=== PATIENT | female | born 1995 | race Caucasian/White ===

== ENCOUNTER 2017-09-17 21:28 | Emergency (ER) | payer OTHER ==
[~2017-09-17] VITALS: Ht 162.6 cm; Wt 55.3 kg
[~2017-09-17 21:28] MED LIST: NORETAB29 PO
[2017-09-17 21:35] VITALS: TEMP 36.9; Ht 162.6 cm; Wt 55.3 kg
[2017-09-17 22:34] LABS: BASO % 0.1 %; BASO ABS # 0.01 K/uL (0-0.2); EOS % 0.5 %; EOS ABS # 0.04 K/uL (0-0.5); HEMOGLOBIN 13.5 g/dL (12.0-16.0); IG# 0.01 K/uL (0.00-0.02); LYMPH % 26.6 %; LYMPH ABS # 1.94 K/uL (1.2-3.4); MEAN CELL VOLUME 85.5 fL (80-100); MEAN CORPUSCULAR HEMOGLOBIN 29.6 pg (25-34); MEAN CORPUSCULAR HGB CONC 34.6 g/dl (32-36); MEAN PLATELET VOLUME 10.1 fL (7.4-10.4); MONO % 8.4 %; MONO ABS # 0.61 K/uL (0.11-0.59); NEUT % 64.3 %; NEUT ABS # 4.68 K/uL (1.4-6.5); PLATELET COUNT 338 K/uL (130-400); RED CELL DISTRIBUTION WIDTH SD 40.1 fL (36.4-46.3); WHITE BLOOD COUNT 7.29 K/uL (4.8-10.8)
[2017-09-17 22:54] LABS: ALBUMIN 3.9 gm/dl (3.4-5.0); ALT/SGPT 23 U/L (12-78); BLOOD UREA NITROGEN 11 mg/dl (7-18); CALCIUM 9.2 mg/dl (8.5-10.1); CARBON DIOXIDE 26 mmol/L (21-32); CREATININE 0.73 mg/dl (0.60-1.20); GLUCOSE 87 mg/dl (70-99); POTASSIUM 3.6 mmol/L (3.5-5.1); SODIUM 137 mmol/L (136-145)
[2017-09-17 23:04] LABS: ALKALINE PHOSPHATASE 62 U/L (45-117); AST/SGOT 13 U/L (15-37); TOTAL PROTEIN 7.6 gm/dl (6.4-8.2)
[2017-09-17] MEDS ORDERED: SERT50TA PO (23:05)
[2017-09-17] MEDS ORDERED: ALPR-411 PO (23:06)
[2017-09-18 00:56] VITALS: BP 118/69; PULSE 67; O2SAT 100
--- NOTE | 2017-09-18 01:10 | EMERGENCY ROOM VISIT NOTE ---
History Report prepared by Monica: Mahesh Chavis Under the Supervision of: Dr. Elvin Colmenares D.O. First contact with patient: 21:43 Chief Complaint: MENTAL HEALTH EVALUATION Stated Complaint: SUICIDAL, PANIC ATTACKS History of Present Illness The patient is a 21 year old female who presents to the Emergency Room with complaints of resolved suicidal ideation occurring today. She states that she had a panic attack today. She states that she feels very stressed out about school, specifically being behind on all of her assignments. The patient states that she only felt suicidal during her panic attack today. She states that she no longer feels suicidal. She states that she had no real plan, and does not believe she would ever actual hurt herself. The patient has a history of anxiety (for which she is on Zoloft & Xanax). She denies any hallucinations. She denies headache, change in vision, fevers, chest pain, shortness of breath, nausea, vomiting, diarrhea, pain with urination, and melena. The patient has never attempted to harm herself in the past. Per friend, the patient called her today and was very upset. She states that she could hear the patient's pill bottle in the background on the phone, and went to see her immediately. The patient estimates that she has 3-4 panic attacks per day. Source of History: patient Onset: Today Quality: other (suicidal ideation) Timing: resolved Associated Symptoms: No fevers, No headache, No chest pain, No SOB, No nausea, No vomiting, No melena, No diarrhea, No urinary symptoms Review of Systems See HPI for pertinent positives & negatives. A total of 10 systems reviewed and were otherwise negative. Past Medical & Surgical Medical Problems: (1) Concussion (2) Migraine Surgical Problems: (1) [place] teeth removed Family History Patient reports no known family medical history. Social History Smoking Status: Never Smoker Housing Status: lives with roommate Occupation Status: [email or web address] student Current/Historical Medications Scheduled Alprazolam (Xanax), 2-3 TABS PO DIRECTED Norethindrone Acetate-Ethinyl (Lo Loestrin Fe), 1 TAB PO DAILY Sertraline (Zoloft), 50 MG PO DAILY Allergies Coded Allergies: Amoxicillin (Unverified Allergy, Unknown, HIVES, 09/17/17) Azithromycin (Unverified Allergy, Unknown, HIVES, 09/17/17) Physical Exam Vital Signs Date Time Temp Pulse Resp B/P (MAP) Pulse Ox O2 Delivery O2 Flow Rate FiO2 09/18/17 00:56 67 20 118/69 100 09/18/17 00:15 64 20 124/67 99 Room Air 09/17/17 21:35 36.9 71 20 121/75 100 Room Air Physical Exam GENERAL: Sitting up in bed, reserved, alert, well appearing, well nourished, no distress, non-toxic EYE EXAM: normal conjunctiva. OROPHARYNX: no exudate, no erythema, lips, buccal mucosa, and tongue normal and mucous membranes are moist NECK: supple, no nuchal rigidity, no adenopathy, non-tender LUNGS: Clear to auscultation. Normal chest wall mechanics HEART: no murmurs, S1 normal and S2 normal ABDOMEN: abdomen soft, non-tender, normo-active bowel sounds, no masses, no rebound or guarding. BACK: Back is symmetrical on inspection and there is no deformity, no midline tenderness, no CVA tenderness. SKIN: no rashes and no bruising UPPER EXTREMITIES: upper extremities are grossly normal. LOWER EXTREMITIES: No pitting edema. NEURO EXAM: Normal sensorium, cranial nerves II-XII grossly intact, normal speech, no gross weakness of arms, no gross weakness of legs. PSYCH: admits to depression and anxiety. Admits to suicidal thought prior to arrival with no plan when she had her panic attack. Notes that she would not actually do it. Medical Decision & Procedures Laboratory Results 09/17/17 22:06 Red Blood Count 4.56, Mean Corpuscular Volume 85.5, Mean Corpuscular Hemoglobin 29.6, Mean Corpuscular Hemoglobin Concent 34.6, Mean Platelet Volume 10.1, Neutrophils (%) (Auto) 64.3, Lymphocytes (%) (Auto) 26.6, Monocytes (%) (Auto) 8.4, Eosinophils (%) (Auto) 0.5, Basophils (%) (Auto) 0.1, Neutrophils # (Auto) 4.68, Lymphocytes # (Auto) 1.94, Monocytes # (Auto) 0.61, Eosinophils # (Auto) 0.04, Basophils # (Auto) 0.01 09/17/17 22:06 Test 09/17/17 22:06 09/17/17 22:08 White Blood Count 7.29 K/uL (4.8-10.8) Red Blood Count 4.56 M/uL (4.2-5.4) Hemoglobin 13.5 g/dL (12.0-16.0) Hematocrit 39.0 % (37-47) Mean Corpuscular Volume 85.5 fL (80-100) Mean Corpuscular Hemoglobin 29.6 pg (25-34) Mean Corpuscular Hemoglobin Concent 34.6 g/dl (32-36) Platelet Count 338 K/uL (130-400) Mean Platelet Volume 10.1 fL (7.4-10.4) Neutrophils (%) (Auto) 64.3 % Lymphocytes (%) (Auto) 26.6 % Monocytes (%) (Auto) 8.4 % Eosinophils (%) (Auto) 0.5 % Basophils (%) (Auto) 0.1 % Neutrophils # (Auto) 4.68 K/uL (1.4-6.5) Lymphocytes # (Auto) 1.94 K/uL (1.2-3.4) Monocytes # (Auto) 0.61 K/uL (0.11-0.59) Eosinophils # (Auto) 0.04 K/uL (0-0.5) Basophils # (Auto) 0.01 K/uL (0-0.2) RDW Standard Deviation 40.1 fL (36.4-46.3) RDW Coefficient of Variation 13.0 % (11.5-14.5) Immature Granulocyte % (Auto) 0.1 % Immature Granulocyte # (Auto) 0.01 K/uL (0.00-0.02) Anion Gap 5.0 mmol/L (3-11) Est Creatinine Clear Calc Drug Dose 106.2 ml/min Estimated GFR () 137.4 Estimated GFR (Non- 118.6 BUN/Creatinine Ratio 15.7 (10-20) Calcium Level 9.2 mg/dl (8.5-10.1) Total Bilirubin 0.3 mg/dl (0.2-1) Direct Bilirubin < 0.1 mg/dl (0-0.2) Aspartate Amino Transf (AST/SGOT) 13 U/L (15-37) Alanine Aminotransferase (ALT/SGPT) 23 U/L (12-78) Alkaline Phosphatase 62 U/L (45-117) Total Protein 7.6 gm/dl (6.4-8.2) Albumin 3.9 gm/dl (3.4-5.0) Thyroid Stimulating Hormone (TSH) 5.010 uIu/ml (0.300-4.500) Ethyl Alcohol mg/dL < 3.0 mg/dl (0-3) Urine Color YELLOW Urine Appearance CLEAR (CLEAR) Urine pH 6.0 (4.5-7.5) Urine Specific [place] 1.026 (1.000-1.030) Urine Protein NEG (NEG) Urine Glucose (UA) NEG (NEG) Urine Ketones NEG (NEG) Urine Occult Blood 2+ (NEG) Urine Nitrite NEG (NEG) Urine Bilirubin NEG (NEG) Urine Urobilinogen NEG (NEG) Urine Leukocyte Esterase NEG (NEG) Urine WBC (Auto) 1-5 /hpf (0-5) Urine RBC (Auto) 5-10 /hpf (0-4) Urine Hyaline Casts (Auto) 0 /lpf (0-5) Urine Epithelial Cells (Auto) >30 /lpf (0-5) Urine Bacteria (Auto) 1+ (NEG) Urine Crystals CALCIUM OXALATE (NONE Urine Pathogenic Casts /lpf (0) Urine Yeast (Auto) (NONE PRSENT) Urine Opiates Screen NEG (NEG) Urine Methadone, Qualitative NEG (NEG) Urine Barbiturates NEG (NEG) Urine Phencyclidine (PCP) Level NEG (NEG) Ur Amphetamine/Methamphetamine NEG (NEG) MDMA (Ecstasy) Screen NEG (NEG) Urine Benzodiazepines Screen POS (NEG) Urine Cocaine Metabolite NEG (NEG) Urine Marijuana (THC) NEG (NEG) Laboratory results per my review. ED Course ED COURSE: Vital signs were reviewed and appeared normal. The patients medical record was reviewed The above diagnostic studies were performed and reviewed. ED treatments and interventions as stated above. 2144: The patient was evaluated in room A9A. A complete history and physical examination was performed. 0000: I spoke with the counseling case manager. He feels that the patient would be safe for discharge with close outpatient follow up. The patient has had thought of self cutting, but has not have actual thoughts of suicide. The counseling case manager notes that the patient has an appointment with [facility] tomorrow. 0035: Upon reevaluation, the patient is resting comfortably. I discussed my findings with the patient and her parents. They understand and agree with the treatment plan. The patient's parents feel comfortable taking the patient home. The patient does not want to stay, and refused admission to the hospital. Based on the patients age, coexisting illnesses, exam and lab findings the decision to treat as an outpatient was made. The patient remained stable while under my care. The patient appeared well at the time of discharge. Medical Decision Differential diagnosis: Etiologies such as mood disorder, infection, hypoglycemia, electrolyte abnormalities, cardiac sources, intracerebral event, toxicologic, neurologic, as well as others were entertained. Patient is a 21-year-old female who presents to ER for anxiety attack. She has these about 2-3 times a day. This one tonight she became very worked up and need to get out of her apartment. She did note that for a short period of time she did not want to live to this anxiety attack. She denies any clear plan. She admits that she would never harm herself. CBC all BMP and LFTs, bilirubin was unremarkable. TSH was slightly elevated. Tox and alcohol was negative. UA was contaminated. Patient was evaluated by Franck from her psychiatric restorative care technician's. He did not believe that she is a danger to herself or that she needed/met admission criteria. She had a clear logical train of thought. She has good insight. She has a great support system his parents drove up from [place]. They felt comfortable taking her home. Mom will stay with her for the next several days as she does not work. Patient refused to say although I did offer placement as an inpatient. She denies any auditory or visual hallucinations. She has no racing thoughts. She is not paranoid. The symptoms only occurred with a severe panic attack. She admits that she would never harm herself. Do feel comfortable with her going home at this time as her parents, patient and friend does as well. She is given follow-up appointments as an outpatient. She is following up with her MARKET SURVEY REPRESENTATIVE tomorrow. Discussed with Pt concerning signs and symptoms to watch out for. Pt was instructed to follow up with their PCP and discussed with the patient their option to return to the ED at anytime for persistent or worsening symptoms. The appropriate anticipatory guidance and out-patient management, including indications for return to the emergency department, were explained at length to the patient and understood. Medication Reconcilliation Current Medication List: was personally reviewed by me Blood Pressure Screening Patient's blood pressure: Normal blood pressure Blood pressure disposition: Did not require urgent referral Impression Primary Impression: Mood disorder Additional Impression: Acute anxiety Scribe Attestation The scribe's documentation has been prepared under my direction and personally reviewed by me in its entirety. I confirm that the note above accurately reflects all work, treatment, procedures, and medical decision making performed by me. Departure Information Dispostion Home / Self-Care Referrals No Doctor, Assigned (PCP) Forms HOME CARE DOCUMENTATION FORM, IMPORTANT VISIT INFORMATION Patient Instructions ED Contract, No Harm, ED Depression, My [facility] Additional Instructions Please follow up with your primary care doctor with in the next 24 hours. Any worsening of your symptoms, please return to the ED immediately. This includes any thoughts of self-harm or any thoughts of harming anyone else or any other concerning signs or symptoms from your standpoint. Please have your TSH followed up on by your primary care doctor as it was slightly elevated at 5. Problem Qualifiers
== END 2017-09-18 00:57 | disposition home or self-care (01) ==
LOC: C.EDB 21:30 → C.EDA 09-18 00:57
DX: F39 Unspecified mood [affective] disorder (principal); F41.0 Panic disorder [episodic paroxysmal anxiety]; G43.909 Migraine, unspecified, not intractable, without status migrainosus

== ENCOUNTER 2017-09-21 05:58 | Inpatient (IN) | payer OTHER ==
[~2017-09-21] VITALS: Ht 162.6 cm; Wt 54.0 kg
[~2017-09-21 05:58] MED LIST changes: +ALPR-411 PO; +SERT50TA PO
[2017-09-21 06:51] LABS: BASO % 0.2 %; BASO ABS # 0.01 K/uL (0-0.2); HEMATOCRIT 40.4 % (37-47); HEMOGLOBIN 14.2 g/dL (12.0-16.0); IG# 0.01 K/uL (0.00-0.02); LYMPH % 15.2 %; LYMPH ABS # 0.73 K/uL (1.2-3.4); MEAN CORPUSCULAR HEMOGLOBIN 29.5 pg (25-34); MEAN CORPUSCULAR HGB CONC 35.1 g/dl (32-36); MEAN PLATELET VOLUME 10.2 fL (7.4-10.4); MONO % 9.4 %; MONO ABS # 0.45 K/uL (0.11-0.59); NEUT ABS # 3.59 K/uL (1.4-6.5); PLATELET COUNT 326 K/uL (130-400); RED CELL DISTRIBUTION WIDTH CV 12.8 % (11.5-14.5); RED CELL DISTRIBUTION WIDTH SD 38.7 fL (36.4-46.3); WHITE BLOOD COUNT 4.79 K/uL (4.8-10.8)
[2017-09-21 07:24] LABS: ALBUMIN 3.8 gm/dl (3.4-5.0); CALCIUM 8.9 mg/dl (8.5-10.1); CREATININE 0.64 mg/dl (0.60-1.20); POTASSIUM 3.9 mmol/L (3.5-5.1)
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
[2017-09-21 07:35] LABS: TOTAL PROTEIN 7.6 gm/dl (6.4-8.2)
[2017-09-21 08:05] VITALS: O2SAT 98
[2017-09-21] MEDS ORDERED: ONDANSETRON 4MG OD TAB PO STA (08:22)
[2017-09-21] MEDS ORDERED: hydrOXYzine HCL 25 MG TAB PO STA (08:22)
[2017-09-21] MEDS ORDERED: ACETAMINOPHEN 325 MG TAB PO STA (08:22)
[2017-09-21] MEDS ORDERED: ACETAMINOPHEN 325 MG TAB PO PRN (11:30)
[2017-09-21] MEDS ORDERED: ALUMINUM/MAGNESIUM SUSP 30 ML UDC PO PRN (11:30)
[2017-09-21] MEDS ORDERED: BISMUTH SUBSALICYLATE PER ML OMNICELL CHARGE PO PRN (11:30)
[2017-09-21] MEDS ORDERED: MAGNESIUM HYDROXIDE SUSP 30 ML UDC PO PRN (11:30)
[2017-09-21] MEDS ORDERED: SODIUM CHLORIDE 0.65% NA SOLN 45 ML (OCEAN) PRN (11:30)
[2017-09-21 13:39] VITALS: BP 120/74; PULSE 83; TEMP 36.8; Ht 162.6 cm; Wt 54.0 kg
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
--- NOTE | 2017-09-21 15:55 | Psych Management Progress Note ---
Psychiatry Miscellaneous Date of Service: Sep 21, 2017. Shana's parents, Devyn and Neva, requested an in person meeting to discuss the patient's admission and treatment plans. KORI for the parents had been obtained by nursing staff prior to agreeing to this meeting. Pt's parents voiced concern about their actions and whether this was the best things for their daughter. The were reassured in their concern and their decision to bring their daughter to the ED for evaluation. 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 Parents are in favor of the patient ending the friendship with Concha as they state she has changed since meeting her. They would also like to involve the roommates in the patient 's treatment as they are concerned that she will not be welcomed back at her appointment following discharge. Her mother was given time to explain her history of concussion and requested neurological testing. It was explained to her that this would need to be done on an outpatient basis as she is admitted for mental health treatment. The mother was also reassured that decreased concentration and difficulty with memory are common symptoms of anxiety and depression as well, and that we would know more as her medications are given time to be effective. Parents were offered a family meeting to involve the patient and a social science research assistant in a discussion to address concerns. They agree to schedule one. Parents were again reassured that they made the appropriate decision and that we should not underestimate the patient's potential to improve with a few days of separation from her current stressors. They appeared to be comforted by the meeting and stated their appreciation.
[2017-09-21] MEDS ORDERED: SERTRALINE HCL 50 MG TAB PO ONE (16:30)
[2017-09-22 06:35] VITALS: BP_SYST 105; BP_SYST 109; BP_DIAS 73; BP_DIAS 76; PULSE 65; PULSE 86; TEMP 36.9
[2017-09-22] MEDS ORDERED: SERTRALINE HCL 50 MG TAB PO SCH (09:00)
[2017-09-22] MEDS: hydrOXYzine HCL 25 MG TAB PO PRN ×2 (12:38→22:34)
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
[2017-09-23 07:00] VITALS: BP_SYST 106; BP_SYST 99; BP_DIAS 67; BP_DIAS 71; PULSE 65; PULSE 88; TEMP 36.8
[2017-09-23] MEDS ORDERED: SERTRALINE HCL 50 MG TAB PO SCH (09:00)
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
[2017-09-23] MEDS: hydrOXYzine HCL 25 MG TAB PO PRN ×2 (11:02→22:47)
[2017-09-23] MEDS: SERTRALINE HCL 50 MG TAB PO SCH (12:35)
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
[2017-09-24 07:03] VITALS: BP_SYST 108; BP_SYST 98; BP_DIAS 64; BP_DIAS 75; PULSE 70; PULSE 99; TEMP 36.8
[2017-09-24] MEDS: SERTRALINE HCL 50 MG TAB PO SCH (09:12)
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
[2017-09-24] MEDS ORDERED: ATR25 PO (09:56)
== END 2017-09-24 11:05 | disposition home or self-care (01) | DRG 885 ==
LOC: C.EDB 06:00 → C.MHU 11:25
PROVIDERS: ADMIT Psychiatry & Neurology Child & Adolescent Psychiatry; ATTEND Psychiatry & Neurology Child & Adolescent Psychiatry
DX: F33.2 Major depressive disorder, recurrent severe without psychotic features (principal); R45.851 Suicidal ideations; F41.1 Generalized anxiety disorder; F41.0 Panic disorder [episodic paroxysmal anxiety]; Z88.1 Allergy status to other antibiotic agents